=== PATIENT | male | born 2000 | race Two or more races ===

== ENCOUNTER 2020-03-06 16:15 | Emergency (ER) | payer SELFPAY ==
[~2020-03-06] VITALS: Ht 182.9 cm; Wt 102.0 kg
[2020-03-06 17:45] LABS: BASOPHILS % 0.4 % (0.0-2.0); EOSINOPHILS % 0.1 % (0.0-5.0); HEMATOCRIT. 42.1 % (42.0-52.0); HEMOGLOBIN. 14.4 g/dL (14.0-18.0); LYMPHOCYTES % 17.6 % (20.0-50.0); MEAN CORPUSCULAR HEMOGLOBIN 30.8 pg (28.0-32.0); MEAN CORPUSCULAR VOLUME 89.9 fL (80.0-94.0); MEAN PLATELET VOLUME 9.5 fl (7.4-10.4); MONOCYTES % 4.5 % (2.0-8.0); NEUTROPHILS % 77.4 % (40.0-76.0); PLATELET 206 x1000/uL (130-400); RED BLOOD CELL COUNT 4.68 mill/uL (4.7-6.1)
[2020-03-06 17:50] LABS: CHLORIDE 108 mEq/L (98-107)
[2020-03-06 17:57] LABS: ETHANOL BLOOD 138 mg/dL
[2020-03-06 18:07] LABS: *AMPHETAMINES SCREEN URINE NEGATIVE (NEGATIVE); *BARBITURATES SCREEN URINE NEGATIVE (NEGATIVE)
[2020-03-06 18:08] LABS: *BENZODIAZEPINES SCREEN URINE PRESUMTIVE POSITIVE (NEGATIVE); *COCAINE SCREEN URINE NEGATIVE (NEGATIVE); CANNABINOID URINE SCREEN PRESUMTIVE POSITIVE (NEGATIVE); METHADONE URINE SCREEN NEGATIVE (NEGATIVE); OPIATES URINE SCREEN NEGATIVE (NEGATIVE); PHENCYCLIDINE URINE SCREEN NEGATIVE (NEGATIVE)
[2020-03-06 19:30] VITALS: BP 105/50
== END 2020-03-06 22:50 | disposition left against medical advice (07) ==
LOC: ER 16:15
DX: F10.129 Alcohol abuse with intoxication, unspecified (principal); F13.129 Sedative, hypnotic or anxiolytic abuse with intoxication, unspecified; Y90.6 Blood alcohol level of 120-199 mg/100 ml
CPT/HCPCS: 36415; 80053; 80305; 80320; 85025; 93005; 99285; G0480